=== PATIENT | male | born 2000 | race Caucasian/White ===

== ENCOUNTER 2021-05-19 07:34 | Emergency (ER) | payer OTHER ==
[~2021-05-19] VITALS: Ht 182.9 cm; Wt 72.6 kg
[2021-05-19 12:17] VITALS: BP 118/72
== END 2021-05-19 12:18 | disposition home or self-care (01) ==
LOC: M.ERS 07:34
DX: F41.0 Panic disorder [episodic paroxysmal anxiety] (principal); Z20.822 Contact with and (suspected) exposure to COVID-19; R42 Dizziness and giddiness